=== PATIENT | male | born 1990 | race Caucasian/White ===

== ENCOUNTER 2019-02-24 07:14 | Outpatient (CLI) | payer MEDICAID, SELFPAY ==
[2019-02-24 08:08] LABS: Abs Immature Grans 0.01 k/cumm (0.0-0.09); Absolute Basophil Count 0.01 k/cumm (0.0-0.2); Absolute Eosinophil Count 0.09 k/cumm (0.0-0.7); Absolute Lymphocyte Count 1.97 k/cumm (1.2-3.4); Absolute Monocyte Count 0.48 k/cumm (0.11-0.7); Absolute Neutrophil Count 2.24 k/cumm (1.2-6.7); Basophils % 0.2; Eosinophils % 1.9; HCT 42.7 % (40.0-50.0); HGB 14.9 g/dL (13.5-17.5); Immature Grans % 0.2 %; Mean Corp. HGB Concentration 34.9 g/dL (32.0-36.0); Mean Corpuscular Hemoglobin 30.9 pg (27.0-33.0); Mean Corpuscular Volume 88.6 fL (80-95); Mean Platelet Volume 8.5 fL (8.0-11.0); Neutrophils % 46.7; Platelet Count 330 x1000/uL (130-400); RBC 4.82 m/cumm (4.50-6.00); RBC Distribution Width 12.5 % (11.8-14.1)
[2019-02-24 11:10] LABS: Anion Gap 10.2 mmol/L (3-11); CO2 26.8 mmol/L (21.0-32.0); CREATININE 0.87 mg/dL (0.70-1.30); Calculated LDL 159 mg/dL; Chloride 104 mmol/L (98-107); Cholesterol 232 mg/dL (<200); Glucose 106 mg/dL (74-106); HDL Cholesterol 60 mg/dL (40-60); Potassium 4.6 mmol/L (3.5-5.1); Sodium 141 mmol/L (136-145); TSH 2.03 uIU/mL (0.36-3.74); Triglyceride 67 mg/dL (<150)
[2019-02-25 14:44] LABS: ANA Interpretation Negative (Negative)
== END 2019-02-24 07:34 ==
PROVIDERS: PCP Nurse Practitioner Family; Visit Provider Otolaryngology Otolaryngology/Facial Plastic Surgery
DX: R42 Dizziness and giddiness (principal)
CPT/HCPCS: 36415; 80051; 80061; 82947; 82565; 84443; 85025; 86038

== ENCOUNTER 2021-06-19 16:07 | Outpatient (CLI) | payer MEDICAID, SELFPAY ==
[2021-06-19 15:48] LABS: Uric Acid 6.6 mg/dL (3.5-7.2)
== END 2021-06-19 16:08 | disposition home or self-care (01) ==
LOC: LBO 16:11
PROVIDERS: PCP Nurse Practitioner Family; Visit Provider Nurse Practitioner Family
DX: M10.9 Gout, unspecified (principal)
CPT/HCPCS: 36415; 84550

== ENCOUNTER 2021-08-21 15:03 | Outpatient (CLI) | payer MEDICAID, SELFPAY ==
--- NOTE | 2021-08-21 14:45 | DI.RAD_ITS ---
Exam(s) XR KNEE LT 3V AP,LAT,MONA EXAM: XR KNEE LT 3V AP,LAT,MONA CLINICAL HISTORY: left knee pain. TECHNIQUE: 2D digital imaging was performed. Three views. COMPARISON: CR LEFT KNEE 4+ VIEWS from 06/14/2017 FINDINGS: BONES: No acute fracture is present. No bony destructive lesion is seen. Enthesophyte superior pole patella. JOINTS: The knee is normally aligned. No joint effusion is seen. Joint spaces are well maintained. SOFT TISSUE: Normal. IMPRESSION: Patellar enthesophyte, otherwise negative. DATA REPOSITORY: RADIATION DOSE DELIVERED:
== END 2021-08-21 15:04 | disposition home or self-care (01) ==
LOC: DIORS 15:04
PROVIDERS: PCP Family Medicine; Referring Provider Family Medicine; Visit Provider Student in an Organized Health Care Education/Training Program
DX: M25.562 Pain in left knee (principal)
CPT/HCPCS: 73562

== ENCOUNTER → 2021-09-11 01:27 | Outpatient (CLI) | payer MEDICAID, SELFPAY ==
--- NOTE | 2021-09-11 07:00 | DI.MRI_ITS ---
Exam(s) MR LOWER JOINT LT WO EXAM: MR LOWER JOINT LT WO CLINICAL HISTORY: LEFT KNEE PAIN, INTERNAL DERANGEMENT, M25.562, M23.92. TECHNIQUE: Multiplanar multisequence MRI was performed. COMPARISON: CR XR KNEE LT 3V AP,LAT,MONA from 08/21/2021 FINDINGS: BONES: There is no fracture or contusion pattern. JOINTS: Articular cartilage is unremarkable. No effusion is present. TENDONS: Extensor mechanism: Unremarkable. There is some hyperintense signal seen on the T2 weighted images i n the posterior aspect of the extensor mechanism. No associated joint effusion, marrow edema or soft tissue abnormality is identified. Medial retinaculum: Unremarkable. Lateral retinaculum: Unremarkable. Popliteus: Unremarkable. MUSCLES: Unremarkable. MENISCI: The medial meniscus is unremarkable. The lateral meniscus is unremarkable. There is a small amount of fluid adjacent to the lateral meniscus which may represent a parameniscal cyst. SOFT TISSUES: Unremarkable. LIGAMENTS: Anterior Cruciate: Unremarkable. Posterior Cruciate: Unremarkable. Medial Collateral:Unremarkable. Lateral Collateral: Unremarkable. OTHER: IMPRESSION: 1. No evidence of a meniscal or ligament tear. 2. Small amount of fluid adjacent to the lateral meniscus which may represent a parameniscal cyst. DATA REPOSITORY:
== END ==
PROVIDERS: PCP Family Medicine; Visit Provider Student in an Organized Health Care Education/Training Program
DX: M23.92 Unspecified internal derangement of left knee (principal)
CPT/HCPCS: 73721

== ENCOUNTER 2022-02-13 13:52 | Emergency (ER) | payer MEDICAID, SELFPAY ==
[2022-02-13 14:08] VITALS: BP 155/83; PULSE 73; RESP 18; TEMP 36.9; O2SAT 99
[2022-02-13 15:09] VITALS: BP 122/79; PULSE 79; RESP 19; O2SAT 96
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
[2022-02-13 16:46] VITALS: BP 119/79; PULSE 77; RESP 19; TEMP 36.4; O2SAT 96
== END 2022-02-13 16:55 | disposition home or self-care (01) ==
PROVIDERS: Emergency Provider Registered Nurse Emergency; PCP Family Medicine
DX: S02.2XXA Fracture of nasal bones, initial encounter for closed fracture (principal); W22.8XXA Striking against or struck by other objects, initial encounter
CPT/HCPCS: 99284; 70450; 70486; 99283

== ENCOUNTER 2023-09-30 15:44 | Outpatient (CLI) | payer MEDICAID, SELFPAY ==
--- NOTE | 2023-09-30 14:15 | DI.RAD_ITS ---
Exam(s) XR KNEE LT 3V AP,LAT,MONA EXAM: XR KNEE LT 3V AP,LAT,MONA CLINICAL HISTORY: LEFT KNEE PAIN. TECHNIQUE: 2D digital imaging was performed. COMPARISON: CR XR KNEE LT 3V AP,LAT,MONA from 08/21/2021 FINDINGS: Four views. No evidence of fracture nor prominent joint effusion. Enthesophyte again noted at the triceps insert ion on the anterosuperior aspect of the patella. No enthesophytes evident off the inferior pole the patella. No narrowing of the patellofemoral compartment nor patellar displacement. There is also no significant narrowing of the medial lateral compartments and no obvious osteochondral defects. Bone density normal. No osseous lesions. IMPRESSION: No acute osseous findings in the left knee. DATA REPOSITORY: RADIATION DOSE DELIVERED:
== END 2023-09-30 15:45 | disposition home or self-care (01) ==
LOC: DIORS 15:44
PROVIDERS: PCP Family Medicine; Visit Provider Student in an Organized Health Care Education/Training Program
DX: M22.42 Chondromalacia patellae, left knee (principal)
CPT/HCPCS: 73562

== ENCOUNTER 2023-10-16 00:27 | Outpatient (CLI) | payer MEDICAID, SELFPAY ==
--- NOTE | 2023-10-16 07:45 | DI.MRI_ITS ---
Exam(s) MR LOWER JOINT LT WO EXAM: MR LOWER JOINT LT WO CLINICAL HISTORY: L KNEE PAIN, chondromalacia patallae lt knee, M22.42. TECHNIQUE: Multiplanar multisequence MRI was performed. COMPARISON: MR MR LOWER JOINT LT WO from 09/11/2021 CR XR KNEE LT 3V AP,LAT,MONA from 09/30/2023 FINDINGS: BONES: There is no fracture or contusion pattern. Enthesophyte at upper pole patella. Mild edema i n the upper pole of the patella adjacent to the enthesophyte. JOINTS: A minimal joint effusion is present. Articular cartilage: Patellofemoral joint: Articular cartilage is unremarkable. Medial femoral tibial joint: Articular cartilage is unremarkable. Lateral femoral tibial joint: Articular cartilage is unremarkable. LIGAMENTS: Anterior Cruciate: Unremarkable. Posterior Cruciate: Unremarkable. Medial Collateral:Unremarkable. Lateral Collateral ligament complex: Unremarkable. TENDONS: Extensor mechanism: Mildly increased signal in the distal quadriceps tendon, similar to prior. Medial retinaculum: Unremarkable. Lateral retinaculum: Unremarkable. Popliteus: Unremarkable. MENISCI: The medial meniscus is unremarkable. The lateral meniscus is unremarkable. MUSCLES: Unremarkable. SOFT TISSUES: Mild edema in fat anterior to patella. IMPRESSION: Enthesophyte at the quadriceps insertion on the patella. Mild edema at the enthesophyte and adjacent upper pole of the patella as well as surrounding soft tissues. No evidence of patellar chondromalacia. DATA REPOSITORY:
== END 2023-10-16 00:47 ==
LOC: DI 00:27
PROVIDERS: PCP Family Medicine; Visit Provider Student in an Organized Health Care Education/Training Program
DX: M22.42 Chondromalacia patellae, left knee (principal)
CPT/HCPCS: 73721